=== PATIENT | male | born 1980 | race Hispanic/Latino ===

== ENCOUNTER 2018-03-18 15:31 | Emergency (ER) | payer SELFPAY ==
[2018-03-18] MEDS ORDERED: NA CHLORIDE 0.9% 1,000 ML ONE (16:06)
[2018-03-18 16:07] LABS: Absolute Lymphocytes (CBC) 1.9 K/uL (0.7-4.9); Absolute Monocytes 0.6 K/uL (0.1-1.3); Absolute Neutrophil 2.4 K/uL (1.8-8.0); Basophils % 0.8 % (0-1.3); Eosinophils % 11.5 % (0-4.4); Hematocrit 42.1 % (39.6-49.0); MPV 7.3 fL (7.6-11.3); Monocytes % 10.1 % (3.3-12.3); RBC Red Blood Cell Count 4.57 M/uL (4.33-5.43)
[2018-03-18 16:25] LABS: Potassium 3.4 mmol/L (3.5-5.1)
--- NOTE | 2018-03-18 16:37 | RAD REPORT ---
EXAM DESCRIPTION: RAD - Chest Single View - 03/18/2018 4:29 pm CLINICAL HISTORY: Left-sided chest pain COMPARISON: None. TECHNIQUE: AP portable chest image was obtained 1611 hours . FINDINGS: Lungs are clear. Heart and vasculature are normal. No measurable pleural effusion and no p neumothorax. No acute bony abnormality seen. No acute aortic findings suspected. IMPRESSION: No acute cardiopulmonary process.
--- NOTE | 2018-03-18 16:53 | RAD REPORT ---
EXAM DESCRIPTION: CT - Abdomen Pelvis W Contrast - 03/18/2018 4:45 pm CLINICAL HISTORY: Abdominal pain, history of diverticulitis COMPARISON: CT study August 2015 TECHNIQUE: Biphasic, helical CT imaging of the abdomen and pelvis was performed following 100 ml non -ionic IV contrast. Oral contrast was given. All CT scans are performed using dose optimization technique as appropriate and may include automated exposure control or mA/KV adjustment according to patient size. FINDINGS: No suspicious findings in the lung bases. Liver shows fatty infiltration with no focal liver lesion. Spleen and pancreas show no suspicious fin dings. Gallbladder and biliary tree are also without suspicious finding. Symmetric renal function is seen with no hydronephrosis or suspicious renal mass. No pyelonephritis o r acute parenchymal process. No bladder abnormalities. No adrenal abnormalities. No dilated bowel loops or bowel wall thickening. Minimal diverticulosis is present in the left side c olon. No diverticulitis or acute colon process. No free air, free fluid or inflammatory stranding. No mass or bulky lymphadenopathy. Patient has a very minimal umbilical hernia. No suspicious bony findings. IMPRESSION: Contrast enhanced CT abdomen and pelvis showing no significant or suspicious finding. N onacute findings detailed in the body of the report.
--- NOTE | 2018-03-18 17:21 | EKG ---
Test Date: 2018-03-18 Test Time: 15:39:09 Global Product Manager: LASHAY MEASUREMENT RESULTS: Intervals: Rate: 90 ND: 138 QRSD: 102 QT: 394 QTc: 481 [place]: P: 26 ND: 138 QRS: 0 T: 43 INTERPRETIVE STATEMENTS: Normal sinus rhythm with sinus arrhythmia Prolonged QT Abnormal ECG No previous ECG available for comparison Electronically Signed On 03-18-18 17:20:30 VACUUM FORM OPERATOR by Cristhian Patel
--- NOTE | 2018-03-18 17:32 | EDPHYS ---
Physician Documentation [facility] Name: Pako Jackson Age: 38 yrs Sex: Male : 1980 Arrival Date: 03/18/2018 Time: 15:34 Bed 26 Private MD: ED Physician Garfield Ordoñez HPI: 03/18 15:56 This 38 yrs old Male presents to ER via EMS with complaints of anxiety. kb 15:56 The patient presents to the emergency department with anxiety. Onset: The kb symptoms/episode began/occurred today, and became worse today. Associated signs and symptoms: Pertinent positives; abdominal pain, anxiety, chest pain, shortness of breath, substance abuse. Severity of symptoms: At their worst the symptoms were moderate severe in the emergency department the symptoms have resolved. The patient has experienced similar episodes in the past, a few times. The patient has not recently seen a physician. Pt states he was brought in because he was having a bad anxiety attack that started this morning causing shortness of breath and chest pain. States "I have been having problems with anxiety, it was just worse today." Was given aspirin by EMS and pt reports that calmed him down. Pt denies chest pain and shortness of breath now. Also reports constipation for 5 days, abd pain for 3 days. States he has stomach problems all the time. States he did drugs 5 days ago and hasn't been to sleep since then so he is tired now. Drank about 6 shots on JASMYNE and was "picked up by the nailer operator for PI." Pt states he is just tired now.. Historical: - Allergies: 15:50 No Known Allergies; mg2 - Home Meds: 15:50 Prevacid Oral [Active]; mg2 - PMHx: 15:50 Diverticulitis; mg2 - PSHx: 15:50 knee and arm surgery; mg2 - Immunization history:: Flu vaccine is not up to date. - Social history:: Smoking status: Patient/guardian denies using tobacco, Patient uses alcohol, patient/guardian reports recent binge of alcohol consumption. street drugs, Methamphetamine (Meth). - Ebola Screening: : No symptoms or risks identified at this time. ROS: 16:01 Constitutional: Negative for fever, chills, and weight loss, ENT: Negative for injury, kb pain, and discharge, Neck: Negative for injury, pain, and swelling, Back: Negative for injury and pain, : Negative for injury, bleeding, discharge, and swelling, MS/Extremity: Negative for injury and deformity, Skin: Negative for injury, rash, and discoloration, Neuro: Negative for headache, weakness, numbness, tingling, and seizure. 16:01 Cardiovascular: Positive for chest pain, Negative for edema, orthopnea, palpitations, paroxysmal nocturnal dyspnea. 16:01 Respiratory: Positive for shortness of breath, Negative for cough, dyspnea on exertion, hemoptysis, orthopnea, pleurisy, sputum production, wheezing. 16:01 Abdomen/GI: Positive for abdominal pain, constipation, Negative for nausea, vomiting, and diarrhea. 16:01 Psych: Positive for anxiety, Negative for depression, drug dependence, alcohol dependence, auditory hallucinations, visual hallucinations, homicidal ideation, insomnia, suicide gesture, suicidal ideation. Exam: 16:02 Constitutional: This is a well developed, well nourished patient who is awake, alert, kb and in no acute distress. Head/Face: Normocephalic, atraumatic. ENT: Nares patent. No nasal discharge, no septal abnormalities noted. Tympanic membranes are normal and external auditory canals are clear. Oropharynx with no redness, swelling, or masses, exudates, or evidence of obstruction, uvula midline. Mucous membranes moist. Neck: Trachea midline, no thyromegaly or masses palpated, and no cervical lymphadenopathy. Supple, full range of motion without nuchal rigidity, or vertebral point tenderness. No Meningismus. Chest/axilla: Normal chest wall appearance and motion. Nontender with no deformity. No lesions are appreciated. Cardiovascular: Regular rate and rhythm with a normal S1 and S2. No gallops, murmurs, or rubs. Normal PMI, no JVD. No pulse deficits. Respiratory: Lungs have equal breath sounds bilaterally, clear to auscultation and percussion. No rales, rhonchi or wheezes noted. No increased work of breathing, no retractions or nasal flaring. Skin: Warm, dry with normal turgor. Normal color with no rashes, no lesions, and no evidence of cellulitis. MS/ Extremity: Pulses equal, no cyanosis. Neurovascular intact. Full, normal range of motion. Neuro: Awake and alert, GCS 15, oriented to person, place, time, and situation. Cranial nerves II-XII grossly intact. Motor strength 5/5 in all extremities. Sensory grossly intact. Cerebellar exam normal. Normal gait. Psych: Awake, alert, with orientation to person, place and time. Behavior, mood, and affect are within normal limits. 16:02 Abdomen/GI: Inspection: abdomen appears normal, Bowel sounds: normal, in all quadrants, Palpation: soft, in all quadrants, nontender, in the right upper quadrant and left upper quadrant, mild abdominal tenderness, in the left lower quadrant, moderate abdominal tenderness, in the right lower quadrant. Vital Signs: 15:48 BP 121 / 80; Pulse 94; Resp 18; Temp 98.9; Pulse Ox 99% on R/A; Weight 90.72 kg; Height mg2 5 ft. 9 in. (175.26 cm); Pain 5/10; 17:54 BP 115 / 85; Pulse 85; Resp 18; Pulse Ox 100% on R/A; Pain 0/10; mg2 15:48 Body Mass Index 29.54 (90.72 kg, 175.26 cm) mg2 MDM: 15:45 Patient medically screened. kb 16:02 Data reviewed: vital signs, nurses notes. Data interpreted: Pulse oximetry: on room air kb is 99 %. Interpretation: normal. 17:31 Counseling: I had a detailed discussion with the patient and/or guardian regarding: the kb historical points, exam findings, and any diagnostic results supporting the discharge/admit diagnosis, lab results, radiology results, the need for outpatient follow up, a family practitioner, to return to the emergency department if symptoms worsen or persist or if there are any questions or concerns that arise at home. 03/18 15:52 Order name: Basic Metabolic Panel; Complete Time: 16:26 kb 03/18 15:52 Order name: CBC with Diff; Complete Time: 16:08 kb 03/18 15:52 Order name: CT Abd/Pelvis - W/Contrast; Complete Time: 16:55 kb 03/18 15:53 Order name: Chest Single View; Complete Time: 16:41 EDMS 03/18 16:56 Order name: Troponin (emerg Dept Use Only); Complete Time: 17:30 kb 03/18 15:52 Order name: IV Saline Lock; Complete Time: 15:54 kb 03/18 15:52 Order name: Labs collected and sent; Complete Time: 15:54 kb 03/18 15:52 Order name: EKG; Complete Time: 15:53 kb 03/18 15:52 Order name: EKG - Nurse/Tech; Complete Time: 15:53 kb Administered Medications: 16:04 Drug: NS 0.9% 1000 ml Route: IV; Rate: 1000 ml; Site: left forearm; mg2 17:54 Follow up: Response: No adverse reaction; IV Status: Completed infusion mg2 Disposition: 03/19 06:53 Co-signature as Attending Physician, Garfield Ordoñez MD I agree with the assessment and suresh plan of care. Disposition: 03/18/18 17:32 Discharged to Home. Impression: Anxiety disorder, unspecified. - Condition is Stable. - Discharge Instructions: Panic Attacks, [id number]. - Medication Reconciliation Form, Thank You Letter, Antibiotic Education, Prescription Opioid Use form. - Follow up: Emergency Department; When: As needed; Reason: Worsening of condition. Follow up: Private Physician; When: 2 - 3 days; Reason: Recheck today's complaints, Continuance of care, Re-evaluation by your physician. Signatures: Dispatcher [employer] [facility] Luz Dowling, CAN CLOSING MACHINE OPERATOR-C CAN CLOSING MACHINE OPERATOR-Garfield Iniguez MD MD cha Gardose, Michele, MEDARDO RN mg2 Corrections: (The following items were deleted from the chart) 03/18 16:03 15:53 Chest Single View+RAD.RAD.BRZ ordered. [facility] 17:32 17:32 03/18/2018 17:32 Discharged to Home. Impression: Constipation, unspecified; kb Anxiety disorder, unspecified. Condition is Stable. Forms are Medication Reconciliation Form, Thank You Letter, Antibiotic Education, Prescription Opioid Use. Follow up: Emergency Department; When: As needed; Reason: Worsening of condition. Follow up: Private Physician; When: 2 - 3 days; Reason: Recheck today's complaints, Continuance of care, Re-evaluation by your physician. kb 17:56 17:32 03/18/2018 17:32 Discharged to Home. Impression: Anxiety disorder, unspecified. mg2 Condition is Stable. Forms are Medication Reconciliation Form, Thank You Letter, Antibiotic Education, Prescription Opioid Use. Follow up: Emergency Department; When: As needed; Reason: Worsening of condition. Follow up: Private Physician; When: 2 - 3 days; Reason: Recheck today's complaints, Continuance of care, Re-evaluation by your physician. kb
--- NOTE | 2018-03-18 17:32 | ER ---
Nurse's Notes [facility] Name: Pako Jackson Age: 38 yrs Sex: Male : 1980 Arrival Date: 03/18/2018 Time: 15:34 Bed 26 Private MD: Diagnosis: Anxiety disorder, unspecified Presentation: 03/18 15:44 Presenting complaint: EMS states: patient is complaining of chest pain left sided, 6 mg2 hours ago, lower abdominal pain. he has history of diverticulitis. aspirin 324 mg was given on scene ekg was sinus tachycardia, bgl- 104 mg/dl, had meth 5 days ago and been drinking last new year. Transition of care:. Transition of care: law enforcement. Onset of symptoms was March 18, 2018. Risk Assessment: Do you want to hurt yourself or someone else? Patient reports no desire to harm self or others. Initial Sepsis Screen: Does the patient meet any 2 criteria? No. Patient's initial sepsis screen is negative. Does the patient have a suspected source of infection? No. Patient's initial sepsis screen is negative. Care prior to arrival: Medication(s) given: ASA, 325 mg. 15:44 Method Of Arrival: EMS: [facility] mg2 15:44 Acuity: TIMO 3 mg2 Historical: - Allergies: 15:50 No Known Allergies; mg2 - Home Meds: 15:50 Prevacid Oral [Active]; mg2 - PMHx: 15:50 Diverticulitis; mg2 - PSHx: 15:50 knee and arm surgery; mg2 - Immunization history:: Flu vaccine is not up to date. - Social history:: Smoking status: Patient/guardian denies using tobacco, Patient uses alcohol, patient/guardian reports recent binge of alcohol consumption. street drugs, Methamphetamine (Meth). - Ebola Screening: : No symptoms or risks identified at this time. Screenin:19 Abuse screen: Denies threats or abuse. Denies injuries from another. Nutritional mg2 screening: No deficits noted. Tuberculosis screening: No symptoms or risk factors identified. Fall Risk IV access (20 points). Assessment: 16:17 General: Appears in no apparent distress. comfortable, Behavior is calm, cooperative. mg2 Pain: Complains of pain in lower abdomen and chest Pain does not radiate. Pain currently is 3 out of 10 on a pain scale. Quality of pain is described as aching, Pain began gradually, 6 hours ago Is intermittent. Neuro: Level of Consciousness is awake, alert, obeys commands, Oriented to person, place, time, situation. Cardiovascular: Capillary refill < 3 seconds Patient's skin is warm and dry. Chest pain is described as mild, quality is indigestion. Respiratory: Airway is patent Respiratory effort is even, unlabored, Respiratory pattern is regular, symmetrical. GI: Abdomen is flat, non-distended, Reports lower abdominal pain. : No signs and/or symptoms were reported regarding the genitourinary system. EENT: No signs and/or symptoms were reported regarding the EENT system. Derm: Skin is intact, is healthy with good turgor, Skin is pink, warm \T\ dry. normal. Musculoskeletal: No signs and/or symptoms reported regarding the musculoskeletal system. 16:37 Reassessment: patient sent to ct scan. mg2 16:58 Reassessment: Patient appears in no apparent distress at this time. Patient and/or mg2 family updated on plan of care and expected duration. Pain level reassessed. Patient is alert, oriented x 3, equal unlabored respirations, skin warm/dry/pink. patient back from ct scan. Vital Signs: 15:48 BP 121 / 80; Pulse 94; Resp 18; Temp 98.9; Pulse Ox 99% on R/A; Weight 90.72 kg; Height mg2 5 ft. 9 in. (175.26 cm); Pain 5/10; 17:54 BP 115 / 85; Pulse 85; Resp 18; Pulse Ox 100% on R/A; Pain 0/10; mg2 15:48 Body Mass Index 29.54 (90.72 kg, 175.26 cm) mg2 ED Course: 15:34 Patient arrived in ED. kr2 15:43 Ever Benoit, MEDARDO is Primary Nurse. mg2 15:45 [facility] Dowling [facility]C [facility] kb 15:45 Garfield Ordoñez MD is Attending Physician. kb 15:48 Triage completed. mg2 15:53 EKG done, by safety tech. reviewed by Luz LEON. sm3 16:00 Inserted saline lock: 22 gauge in right forearm, using aseptic technique. Blood gm collected. 16:01 Radiology exam delayed due to lab results not completed at this time. (BUN/Creatinine). sj 16:01 Initial lab(s) drawn, by me, sent to lab. 16:20 No provider procedures requiring assistance completed. mg2 16:20 Patient has correct armband on for positive identification. monitoring engineer on. Pulse mg2 ox on. NIBP on. Door closed. Warm blanket given. 16:20 Arm band placed on. mg2 16:25 X-ray completed. Portable x-ray completed in exam room. Patient tolerated procedure la2 well. 16:[address] 16:29 Chest Single View In Process Unspecified. EDMS 16:45 CT completed. Patient tolerated procedure well. Patient moved back from CT. sd 16:47 CT Abd/Pelvis - W/Contrast In Process Unspecified. EDMS 17:55 IV discontinued, intact, bleeding controlled, No redness/swelling at site. Pressure mg2 dressing applied. Administered Medications: 16:04 Drug: NS 0.9% 1000 ml Route: IV; Rate: 1000 ml; Site: left forearm; mg2 17:54 Follow up: Response: No adverse reaction; IV Status: Completed infusion mg2 Outcome: 17:32 Discharge ordered by MD. tenorio 17:55 Discharged to with targeting acquisition officer mg2 17:55 Condition: stable 17:55 Discharge instructions given to patient, police, Instructed on discharge instructions, follow up and referral plans. Demonstrated understanding of instructions, follow-up care. 17:56 Patient left the ED. mg2 Signatures: Dispatcher [employer] EDMS Luz Dowling, TRAUMA DOCTOR-C TRAUMA DOCTOR-Ckb Sherrie Becerra Nathan nj Ardoin, Leslie la2 Sheyla Berry RN RN [email or web address] Ever Benoit RN RN [facility] Layla Bynum3 Jayleen Lester Corrections: (The following items were deleted from the chart) 15:51 15:48 BP 121 / 80; Pulse 94bpm; Resp 18bpm; Pulse Ox 99% RA; Pain 5/10; mg2 mg2 15:52 15:48 BP 121 / 80; Pulse 94bpm; Resp 18bpm; Pulse Ox 99% RA; 90.72 kg; Height 5 ft. 9 mg2 in.; BMI: 29.5; Pain 5/10; mg2 17:56 15:44 Transition of care: patient was not received from another setting of care. mg2 mg2 17:56 15:44 Acuity: Unassigned mg2 mg2
== END 2018-03-18 17:56 | disposition home or self-care (01) ==
LOC: ER 15:31
DX: F41.9 Anxiety disorder, unspecified (principal)
CPT/HCPCS: 36415; 71045; 74177; 80048; 84484; 85025; 93005; J7030; Q9967